=== PATIENT | female | born 1975 | race American Indian/Alaskan Native ===

== ENCOUNTER 2016-09-01 10:43 | Inpatient (IN) | payer MEDICAID ==
--- NOTE | 2016-08-26 10:48 | Anesthesia Consultation ---
Anesthesia Consult and Med Hx Date of service: 09/01/16 - Airway Anesthetic Teeth Evaluation: Good ROM Head & Neck: Adequate Mental/Hyoid Distance: Inadequate Mallampati Class: Class III Intubation Access Assessment: Possibly Difficult - Pulmonary Exam CTA: Yes - Cardiac Exam Cardiac Exam: RRR - Pre-Operative Health Status ASA Pre-Surgery Classification: ASA3 Proposed Anesthetic Plan: General - Pulmonary Hx Asthma: Yes (not treated in years) Hx Sleep Apnea: Yes (No CPAP "not severe enough to need CPAP") - Cardiovascular System Hx Hypertension: Yes (x 5 yrs) - Central Nervous System Hx Psychiatric Problems: Yes (anxiety, depression) - Gastrointestinal Hx Gastroesophageal Reflux Disease: No - Endocrine Hx Renal Disease: No Hx Insulin Dependent Diabetes: No - Hematic Hx Anemia: No Hx Sickle Cell Disease: No - Other Systems Hx Alcohol Use: Yes (occas) Hx Substance Use: No Hx Cancer: No Hx Obesity: Yes
[2016-08-26 11:20] LABS: Hematocrit 35.2 % (30.3-42.9); Hemoglobin 10.8 gm/dl (10.1-14.3); Mean Corpuscular HGB Conc 31 % (30-34); Mean Corpuscular Hemoglobin 22 pg (28-32); Mean Corpuscular Volume 71 fl (79-97); Platelet Count 232 K/mm3 (140-440); Red Blood Count 4.96 M/mm3 (3.65-5.03); Red Cell Distribution Width 19.2 % (13.2-15.2); White Blood Count 5.7 K/mm3 (4.5-11.0)
[2016-08-26 11:21] LABS: Eosinophils % (Auto) 1.2 % (0.0-4.3)
--- NOTE | 2016-09-01 09:40 | Admit Criteria Form ---
Admission Criteria Documentation: AMBULATORY SURGERY EXCEPTION CRITERIA Ambulatory Surgery Exception Criteria ( Place 'X' for any and all applicable criteria): Surgery or procedure performed on ambulatory basis may require inpatient stay for[A] ANY ONE of the following(1)(2)(3)(4)(5)(6)(7)(8)(9): [X] I. A preoperative situation, condition, or finding that warrants inpatient stay as indicated by ANY ONE of the following: [] a) Inpatient care needed because of severity of a disease or condition rather than the surgery (eg, severe cardiac or respiratory disease, severe infection) (15) (16 ) (17) (18) [] b) Emergent procedure (eg, angioplasty for acute ischemia)(19) [] c) Complex surgical approach or situation as indicated by ANY ONE of the following(3): [] i) Open approach needed instead of usual endoscopic, transcatheter, or other less invasive procedure [] ii) Difficult approach because of previous operation [] iii) Airway monitoring required after open neck procedures(20)(21) [] iv) Large mass requiring unusually extensive dissection [] v) Additional complicating feature requiring inpatient care (eg, drain management)(22(23): [X] d) Major surgery in a pt with high anesthetic risk as indicated by ANY ONE of the following (2)(3)(5)(7)(8): [X] i) ASA risk class III or higher (severe systemic disease impairing function) [D] [] ii) Advanced age (eg, older than 85 years)(14)(24) [] iii) Symptomatic heart failure(25) [] iv) Symptomatic asthma or COPD(8)(21) [] v) Morbid obesity with hemodynamic or respiratory problems(20)( 21)(26)(27) [] vi) Obstructive sleep apnea(20)(21) [] vii) Former premature infants who are younger than 60 weeks [] viii) High risk for severe postoperative abnormalities (eg, severe postoperative hypocalcemia after parathyroidectomy for severe hyperparathyroidism)(27)( 28) [] ix) Unstable angina(25) [] e) Drug-related risk requiring inpatient stay as indicated by ANY ONE of the following(5)(10)(14)(32)(33) [] i) Procedure requires discontinuing drugs or other therapy (eg , antiarrhythmic medication, antiseizure medication), which necessitates inpatient observation or treatment.(18)(31) [] ii) Major surgery and high risk drug use as indicated by ANY ONE of the following: [] 1) Active abuse of cocaine or similar drug [] 2) Monoamine oxidase inhibitor use [] 3) Other drug identified as posing risk [] f) Inadequate outpatient care situation as indicated by ANY ONE of the following(5)(10)(14)(32)(33) [] i) Patient lives remote from medical facility and procedure has urgent complication potential, and temporary nearby residence cannot be arranged [] ii) Patient will have postprocedure incapacitation and inadequate assistance at home, or alternative level of care cannot be arranged. [] iii) Patient will have long general anesthesia or procedure side effect resolution time, and competent person to stay with patient on first postoperative night at home or alternative level of care cannot be arranged. []iv) Other inadequate outpatient situation that cannot be handled by other means [] II. A perioperative event, condition, or finding that warrants inpatient stay as indicated by ANY ONE of the following (1)(2)(3): [] a) Inadequate physiologic recovery: cardiovascular, respiratory, or hemodynamic status not normal or near preoperative baseline(18) [] b) Hemodynamic instability [] c) Patient not alert with near normal or baseline mental status [] d) Temperature not normal or as expected and not appropriate for outpatient treatment of condition [] e) Ambulatory or appropriate activity level status not yet achieved post procedure [E](34)(35)(36) [] f) Operative site not appropriate (eg, unexpected or excessive drainage or bleeding) [] g) Postoperative effects not resolved or adequately managed (eg, significant pain or vomiting not appropriate for outpatient or next level of care)(10)(12) [] h) Complicating features requiring inpatient care as indicated by ANY ONE of the following(37): [] i) Severe complications of procedure (eg, bowel injury, airway compromise, vascular injury,severe hemorrhage) [] ii) Extensive (eg, dissection far beyond usual scope of procedure ) or prolonged (eg, 120 minutes beyond usual) surgery needed requiring inpatient postoperative care [] iii) Conversion to an open or complex procedure that requires inpatient care (eg, open vs laparoscopic cholecystectomy, abdominal vs vaginal hysterectomy)(38) [] iv) Comorbid condition or test result identified during or post procedure that requires inpatient care (7) [] v) Malignant hyperthermia(30) [] vi) Other complicating feature requiring inpatient care(22)(23) Inpatient stay may be needed until ALL of the following are present (1)(2)(3)(4) (5)(6)(10)(14)(33)(40): []a) Physiologic recovery: cardiovascular, respiratory, and hemodynamic status normal or near preoperative baseline []b) Hemodynamic stability []c) Patient alert, with near normal or baseline mental status []d) Temperature appropriate: patient afebrile or temperature appropriate for outpt treatment of condition []e) Activity level appropriate: ambulatory or appropriate activity level post procedure []f) Operative site appropriate as indicated by ALL of the following: []i) Site dry or with expected drainage []ii) Any blood noted is as expected for procedure. []g) Postoperative effects resolved or managed as indicated by ALL of the following: []i) Pain management appropriate for outpatient (or next level of) care(10) []ii) Minimal nausea and vomiting: if present, successfully treated with oral medication(12) []iii) Headache, dizziness, or drowsiness (if present) are mild. []h) Voiding status acceptable as indicated by ANY ONE of the following: []i) Voiding spontaneously []ii) No voiding but instructions given for follow-up in 6 to 8 hours []iii) Urinary catheter in place, and instructions given for follow-up []i) Complicating features requiring inpatient care manageable at a lower level of care(37) []j) Comorbid conditions manageable at a lower level of care(37) The original [employer] content created by [employer] has been revised. The portions of the content which have been revised are identified through the use of italic text or in bold, and [email or web address] has neither reviewed nor approved the modified material. All other unmodified content is copyright [employer]. Please see references footnoted in the original [employer] edition 2016 Admission Criteria Met: Yes
[~2016-09-01 10:43] MED LIST: NACL 0.9% 1000 ML 1,000 ML IV SCH; NEURONTIN PO NR; PEPCID PO NR; SUBLIMAZE IV NR; VERSED IV NR
[2016-09-01] MEDS ORDERED: ANCEF/STERILE WATER 2 GM/20 ML 2 GM/20 ML SYRINGE IV SCH (11:00)
--- NOTE | 2016-09-01 11:02 | Short Stay Summary ---
Short Stay Documentation Date of service: 09/01/16 Narrative H&P: Pt is a 40yo BF LMP 08/21/16 with uterine fibroids and prolonged heavy menstrual cycles . Pelvic u/s showed the uterus measuring 12.0 x 7.85 x 6.6cm with 2 fibroids, and thickened endometrium that was biopsied and showed mixed disordered proliferative endometrium. She now presents for a Robotic Assisted Total Hysterectomy with ovarian conservation. - History Principal diagnosis: Symptomatic fibroid uterus H&P: obtained from office Past Medical History: GERD, hypertension, other (Asthma; Depression) Past Surgical History: , Other (BTL; Breast reduction) Social history: no significant social history, single - Allergies and Medications Current Medications: Allergies hydrochlorothiazide Allergy (Verified 08/19/16 15:43) Vomiting lisinopril Adverse Reaction (Verified 08/19/16 15:43) cough Home Medications Medication Instructions Recorded Confirmed Last Taken Type Bupropion HCl [Bupropion HCl Sr] 150 mg PO DAILY 08/19/16 08/19/16 Unknown History Citalopram [celeXA] 40 mg PO QDAY 08/19/16 08/19/16 Unknown History Norvasc 10 mg PO DAILY 08/19/16 08/19/16 Unknown History risperiDONE [RisperDAL] 2 mg PO QDAY 08/19/16 08/19/16 Unknown History Active Medications Celecoxib (Celebrex) 200 mg PO PREOP NR Stop: 09/01/16 21:00 Famotidine (Pepcid) 20 mg PO PREOP NR Stop: 09/01/16 21:00 Fentanyl (Sublimaze) 100 mcg IV ONCE NR Stop: 09/01/16 18:00 Gabapentin (Neurontin) 600 mg PO PREOP NR Stop: 09/01/16 21:00 Sodium Chloride (Nacl 0.9% 1000 Ml) 1,000 mls @ 75 mls/hr IV DIRECT TIMOTEO Cefazolin Sodium (Ancef/Sterile Water 2 Gm/20 Ml) 2 gm in 20 mls @ 80 mls/hr IV PREOP TIMOTEO PRN Reason: Protocol Midazolam HCl (Versed) 2 mg IV PREOP NR Stop: 09/01/16 23:59 - Physical exam General appearance: no acute distress Integumentary: no rash HEENT: Atraumatic Lungs: Clear to auscultation Breasts: deferred Heart: Regular rate Gastrointestinal: normal Female Genitourinary: deferred Extremities: no ischemia Neurological: Normal gait, Normal speech - Brief post op/procedure progress note Date of procedure: 09/01/16 Pre-op diagnosis: 1. Symptomatic fibroid uterus 2. Menorrhagia Post-op diagnosis: same Procedure: 1. Robotic Assisted Total Hysterectomy 2. Bilateral salpingectomy Anesthesia: GETA Findings: A 12 weeks size myomatous uterus with normal ovaries bilaterally. Tubes showed evidence of previous tubal ligation bilaterally. Omental adhesions to the anterior abdominal wall. Surgeon: ALEXANDRO MCKEON Estimated blood loss: 50-100ml Pathology: list (Uterus, cervix and fallopian tubes) Specimen disposition: to lab Condition: stable - Hospital course Hospital course: Unremarkable. - Disposition Condition at discharge: Good Disposition: - TO HOME OR SELFCARE - Discharge Diagnoses (1) Fibroid uterus Status: Resolved Qualifiers: Uterine leiomyoma location: submucous and subserous Qualified Code(s): D25.0 - Submucous leiomyoma of uterus; D25.2 - Subserosal leiomyoma of uterus (2) Menorrhagia Status: Resolved Qualifiers: Menorrahagia type: with irregular cycle Qualified Code(s): N92.1 - Excessive and frequent menstruation with irregular cycle Short Stay Discharge Plan Activity: no restrictions Diet: regular Wound: open to air, keep clean and dry Follow up with: PRIMARY CARE, [Primary Care Provider] - 7 Days ALEXANDRO MCKEON MD [Staff Physician] - 14 Days Prescriptions: HYDROcodone/APAP 5-325 [Bayard 5-325 mg TAB] 1 each PO Q6HR PRN #30 tablet PRN Reason: Pain, Moderate (4-6) Ibuprofen [Motrin] 800 mg PO Q8HR PRN #30 tablet PRN Reason: Moder Pain Unrelieved By Bayard
[2016-09-01] MEDS ORDERED: NEOSPORIN GU IR ONE ×2 (11:30→14:28)
[2016-09-01] MEDS ORDERED: MARCAINE-EPI 0.25%-1:200,000 INFILTRATI ONE ×2 (11:30→14:29)
[2016-09-01] MEDS ORDERED: DILAUDID ONE (11:31)
[2016-09-01] MEDS ORDERED: DIPRIVAN 10 MG/ML IV ONE (11:31)
[2016-09-01] MEDS ORDERED: XYLOCAINE MPF 2% ONE (11:33)
[2016-09-01] MEDS ORDERED: ZEMURON IV ONE ×2 (11:33→14:01)
--- NOTE | 2016-09-01 12:04 | Anesthesia Day of Surgery ---
Anesthesia Day of Surgery - Day of Surgery Patient Examined: Yes Patient H&P Reviewed: Yes Patient is NPO: Yes
[2016-09-01] MEDS ORDERED: NACL 0.9% IR ONE ×2 (14:29→14:30)
[2016-09-01] MEDS ORDERED: ZOFRAN ONE (14:56)
[2016-09-01] MEDS ORDERED: NEOSTIGMINE ONE (14:57)
[2016-09-01] MEDS ORDERED: ROBINUL ONE (14:57)
[2016-09-01] MEDS ORDERED: DECADRON ONE (14:57)
[2016-09-01] MEDS ORDERED: NACL 0.9% 1000 ML 1,000 ML ONE (15:10)
[2016-09-01] MEDS ORDERED: ZOFRAN IV PRN (15:27)
[2016-09-01] MEDS ORDERED: REGLAN IV PRN (15:27)
[2016-09-01] MEDS ORDERED: NARCAN 0.4 MG/1 ML IV PRN (15:27)
[2016-09-01] MEDS ORDERED: BENADRYL IV PRN (15:27)
[2016-09-01] MEDS ORDERED: REGLAN PO PRN (15:27)
[2016-09-01] MEDS ORDERED: MILK OF MAGNESIA PO PRN (15:29)
[2016-09-01] MEDS ORDERED: PERCOCET 5/325 PO PRN (15:29)
[2016-09-01] MEDS ORDERED: NORCO 5/325 PO PRN (15:29)
[2016-09-01] MEDS ORDERED: SODIUM CHLORIDE FLUSH SYRINGE 10 ML IV PRN (15:29)
[2016-09-01] MEDS ORDERED: TYLENOL PO PRN (15:29)
--- NOTE | 2016-09-01 15:46 | Operative Report ---
Operative Report Operative Report: Date of procedure: 09/01/2016 Pre-operative diagnosis: 1. Symptomatic fibroid uterus 2. Menorrhagia Post-operative diagnosis: Same with pelvic adhesions Procedure name(s): Surgeon: Anton Gillette MD Cooling Tower Operator: Ceci Lund SA Anesthesia: General endotracheal intubation by Dr. Ny EBL: 100 mL's Findings: A 12 week size uterus with normal ovaries bilaterally. Tubes showed evidence of previous tubal ligation bilaterally. Omental adhesions to the anterior abdominal wall. Procedure: After the patient's first correctly identified she was prepped and draped in the usual sterile fashion and placed in the dorsolithotomy position. The bladder was first catheterized using Camejo catheter and the speculum was placed in the vagina and the anterior lip of the cervix was grasped using a single-tooth tenaculum, and the medium Vesicare cup was placed. The tenaculum and speculum was then removed from the vagina and attention was then turned to the abdomen. The skin knife was used to make a small incision approximately 5 cm above the umbilicus through which a 12 mm trocar was placed under direct visualization. After adequate amount of abdominal insufflation visualization of the pelvic organs found the uterus to be enlarged and the tubes with evidence of previous tubal ligation bilaterally and ovaries were found to be normal bilaterally. A right lateral incision was made through which a 5 mm trocar was placed under direct visualization. A right and left paramedian incision was made through which the 8 mm trochars were placed under direct visualization. The patient was then placed in steep Trendelenburg positioning and the robot was docked on the patient's left side. After all the robotic ports were connected and adequate functioning of the robotic arms were tested the surgeon then proceeded to the console to begin the hysterectomy. First the left round ligament was grasped, cauterized and cut, the left utero- ovarian ligaments were grasped, cauterized and cut, and the left fallopian tube also grasped, cauterized and cut along the mesosalpinx, thus freeing the left ovary from the left uterine sidewall. The same procedure was performed on the right. The right round ligament was grasped, cauterized and cut, the right utero-ovarian ligaments were grasped, cauterized and cut, and the right fallopian tube also grasped, cauterized and cut along the mesosalpinx, thus freeing the right ovary from the right uterine sidewall. The bladder flap was taken down anteriorly and the uterine vessels were grasped, cauterized and cut bilaterally. The cardinal ligaments were sequentially grasped, cauterized and cut down to the level of the uterosacral ligaments. At this time the posterior colpotomy was performed over the Vcare cup, and the cervix was circumscribed beginning posteriorly and meeting anteriorly until the cervix was freed. The cervix, uterus fallopian tubes were then removed through the vagina and sent to pathology. The vaginal cuff was then closed using 2-0 Vloc suture in a running fashion. Irrigation was then performed and after good hemostasis was achieved the procedure was considered complete. The Tisseel sealant was then sprayed across the vaginal cuff site, and after excellent hemostasis was assured Interceed was placed across the vaginal cuff site. All instruments were then removed from the abdominal cavity. And each incision was closed using 0 Vicryl suture in a [id number] configuration on the fascia followed by 4-0 Monocryl suture in a subcuticular fashion on the skin. Each incision was also infiltrated using 0.5% Marcaine solution. The vaginal pack was removed. The patient tolerated the procedure well and was transported to the recovery room in stable condition.
[2016-09-01] MEDS ORDERED: NACL 0.9% 1000 ML 1,000 ML IV SCH (16:00)
[2016-09-01] MEDS ORDERED: MORPHINE PCA 30MG/30ML IV SCH (16:00)
[2016-09-01] MEDS ORDERED: D5LR 1,000 ML IV SCH (16:00)
--- NOTE | 2016-09-01 16:18 | Post Anesthesia Evaluation ---
- Post Anesthesia Evaluation Patient Participated: Yes Airway Patent: Yes Stable Respiratory Function: Yes Nausea/Vomiting: No Temp > 96.8F: Yes Pain Manageable: Yes Adequeate Hydration: Yes Anesthesia Complications: No Block Receding Appropriately: Not Applicable Patient on Ventilator: No
[2016-09-01] MEDS: ANCEF/NS 1 GM/50 ML 1 GM/50 ML BAG IV SCH (21:22)
[2016-09-01] MEDS: TORADOL IV SCH ×2 (21:23→22:38)
[2016-09-01] MEDS ORDERED: SENOKOT S PO SCH (22:00)
[2016-09-02] MEDS: TORADOL IV SCH ×2 (03:37→09:18)
[2016-09-02] MEDS: ANCEF/NS 1 GM/50 ML 1 GM/50 ML BAG IV SCH (05:07)
[2016-09-02 06:59] LABS: Hematocrit 32.7 % (30.3-42.9); Hemoglobin 10.2 gm/dl (10.1-14.3)
--- NOTE | 2016-09-02 07:30 | Progress Note ---
Assessment and Plan - Patient Problems (1) Status post robot-assisted surgical procedure Onset Date: 09/02/16 Current Visit: Yes Status: Resolved Plan to address problem: A: S/P RATH - POD #1 Doing well P: May go home this afternoon. Subjective - Subjective Date of service: 09/02/16 Principal diagnosis: s/p RATH - POD #1 Interval history: Pt is feeling well without complaints. Tolerating a liquid diet without nausea or vomiting, ambulating and voiding without difficulty. Patient reports: appetite normal, voiding normally, pain well controlled, ambulating normally, no flatus, no nauseated Objective - Vital Signs Latest vital signs: Vital Signs Temp Pulse Pulse Resp BP BP Pulse Ox 09/02/16 04:40 99.3 F 78 18 120/57 09/02/16 00:00 98.6 F 83 16 128/58 09/01/16 20:10 97.8 F 80 20 136/68 09/01/16 18:15 98.1 F 70 16 144/77 95 09/01/16 18:10 98.1 F 70 16 147/77 09/01/16 17:35 77 20 146/76 97 09/01/16 17:20 74 20 126/64 95 09/01/16 17:05 67 18 119/59 99 09/01/16 16:50 67 20 115/58 99 09/01/16 16:35 65 12 135/48 100 09/01/16 16:20 67 20 147/85 100 09/01/16 16:05 65 13 129/69 100 09/01/16 16:00 61 17 141/76 100 09/01/16 15:55 62 13 154/79 100 09/01/16 15:50 97.9 F 65 14 156/71 98 09/01/16 12:27 99.1 F 67 20 151/98 99 09/01/16 11:30 99.1 F 67 20 151/98 99 Intake and Output 09/01/16 09/02/16 09/02/16 22:59 06:59 14:59 Intake Total 890 1707 Output Total 400 600 Balance 490 1107 Intake: IV 650 917 ANCEF/NS 1 GM/50 ML 1 gm 100 In 50 ml @ 100 mls/hr IV Q8H [facility] Rx#:[id number] ANCEF/STERILE WATER 2 GM/ 50 20 ML 2 gm In 20 ml @ 80 mls/hr IV PREOP TIMOTEO Rx#: [id number] D5lr 1,000 ml @ 125 mls/ 617 hr IV DIRECT TIMOTEO Rx#: [id number] NaCl 0.9% 1000 ml 1,000 450 250 ml @ 42 mls/hr IV DIRECT TIMOTEO Rx#:[id number] Oral 240 490 Intake, Free Water 300 Output: Urine 400 600 Void 100 600 Other: Total, Intake Amount 240 240 Total, Output Amount 100 600 Voiding Method Toilet # Voids Void 1 - Exam Breasts: Present: deferred Cardiovascular: Present: Regular rate Lungs: Present: Clear to auscultation Abdomen: Present: normal appearance, soft Extremities: Present: normal Incision: Present: normal, dry, intact - Labs Labs: Laboratory Tests 08/26/16 08/26/16 08/26/16 10:05 10:05 10:05 WBC 5.7 RBC 4.96 Hgb 10.8 Hct 35.2 MCV 71 L MCH 22 L MCHC 31 RDW 19.2 H Plt Count 232 Lymph % (Auto) 29.7 [place] % (Auto) 7.1 Eos % (Auto) 1.2 Baso % (Auto) 1.0 Lymph # 1.7 [place] # 0.4 Eos # 0.1 Baso # 0.1 Seg Neutrophils % 61.0 Seg Neutrophils # 3.5 HCG, Qual Negative Blood Type A POSITIVE Antibody Screen TNR SARA Antibody Screen Negative 09/02/16 06:36 WBC RBC Hgb 10.2 Hct 32.7 MCV MCH MCHC RDW Plt Count Lymph % (Auto) [place] % (Auto) Eos % (Auto) Baso % (Auto) Lymph # [place] # Eos # Baso # Seg Neutrophils % Seg Neutrophils # HCG, Qual Blood Type Antibody Screen SARA Antibody Screen
--- NOTE | 2016-09-02 09:41 | Progress Note ---
Subjective Date of service: 09/02/16 Principal diagnosis: Symptomatic fibroid uterus Interval history: Patient seen on post-op day 1, satisfied with anesthesia, ambulating. Objective - Constitutional Vitals: Vital Signs - 12hr 09/02/16 09/02/16 09/02/16 00:00 04:40 08:10 Temperature 98.6 F 99.3 F 98.9 F Pulse Rate [ 83 78 80 Radial] Respiratory 16 18 18 Rate Blood Pressure 128/58 120/57 126/61 [Left Arm] - Labs CBC & Chem 7: 09/02/16 06:36
[2016-09-02 12:34] VITALS: BP 133/63
== END 2016-09-02 14:30 | disposition home or self-care (01) | DRG 742 ==
LOC: OR 10:43 → OB 15:29
PROVIDERS: ADMIT Obstetrics & Gynecology; ATTEND Obstetrics & Gynecology
PROC: 0UT9FZZ Resection of Uterus, Via Natural or Artificial Opening With Percutaneous Endoscopic Assistance (ICD-10-PCS; principal; 2016-09-01)
PROC: 0UT7FZZ Resection of Bilateral Fallopian Tubes, Via Natural or Artificial Opening With Percutaneous Endoscopic Assistance (ICD-10-PCS; 2016-09-01)
PROC: 8E0W4CZ Robotic Assisted Procedure of Trunk Region, Percutaneous Endoscopic Approach (ICD-10-PCS; 2016-09-01)
PROC: 0UTC7ZZ Resection of Cervix, Via Natural or Artificial Opening (ICD-10-PCS; 2016-09-01)
DX: D25.0 Submucous leiomyoma of uterus (principal); Z68.43 Body mass index [BMI] 50.0-59.9, adult; D25.2 Subserosal leiomyoma of uterus; K21.9 Gastro-esophageal reflux disease without esophagitis; I10 Essential (primary) hypertension; F32.9 Major depressive disorder, single episode, unspecified; N92.1 Excessive and frequent menstruation with irregular cycle; N73.6 Female pelvic peritoneal adhesions (postinfective); Z98.891 History of uterine scar from previous surgery; Z91.040 Latex allergy status; Z88.8 Allergy status to other drugs, medicaments and biological substances; E66.01 Morbid (severe) obesity due to excess calories; Z71.3 Dietary counseling and surveillance
CPT/HCPCS: 36415; 84703; 85014; 85018; 85025; 86850; 86900; 86901; 88305; 88307; A4217; C9250; J0690; J1100; J1170; J1885; J2250; J2270; J2405; J2704; J2710; J7030; J7121